=== PATIENT | male | born 1995 | race Caucasian/White ===

== ENCOUNTER 2020-11-13 22:19 | Emergency (ER) | payer OTHER ==
[~2020-11-13] VITALS: Ht 183 cm; Wt 74.0 kg
[2020-11-13 22:29] VITALS: BP 140/70
[2020-11-13] MEDS ORDERED: LIDOCAINE 1% INJ 20 ML 20 ML VIAL ONE (22:40)
[2020-11-13] MEDS ORDERED: LIDOCAINE 1% INJ 20 ML 20 ML VIAL INJ ONE (22:45)
--- NOTE | 2020-11-13 23:13 | ED Upper Extremity ---
General Chief Complaint: Upper Extremity Stated Complaint: MEDICAL CLEARANCE Nursing Triage Note: Pt arrives to ED in police custody. Pt was intoxicated et punched a window. Significant laceration to right arm. Pt is awake, alert, talkative. Airway intact. Respirations even et unlabored. Skin warm, dry, appropriate for ethnicity. Source: patient Exam Limitations: no limitations History of Present Illness Date Seen by Provider: Nov 13, 2020 Time Seen by Provider: 22:25 Initial Comments Patient is a 25-year-old right-handed male who presents in police custody with lacerations to right hand and forearm after punching a glass window. No other injuries or complaints. Tetanus up-to-date. Patient with 4 lacerations of various lengths involving right flexor forearm and right wrist and right extensor hand over fifth MCP and fourth MCP joints. There is a laceration through the extensor finger of his fifth digit. He denies foreign body sensation. Patient has been drinking alcohol earlier this evening. No other injuries or complaints Onset: just prior to arrival Pain/Injury Location: right forearm, right wrist, right 4th finger, right 5th finger Method of Injury: incised Modifying Factors: Improves With Pain Medication Allergies and Home Medications Allergies Coded Allergies: No Known Drug Allergies (Unverified , 11/13/20) Patient Home Medication List Home Medication List Reviewed: Yes Review of Systems Constitutional: see HPI Past [id number] Hx Patient Social History Tobacco Use?: Yes Tobacco type used: Cigarettes Smoking Status: Current Everyday Smoker Smokeless Tobacco Frequency: Never a User Use of E-Cig and/or Vaping dev: No Use of E-Cig and/or Vaping Ramirez: Never a User Substance use?: Yes Substance type: Marijuana Substance frequency: Couple times a week Alcohol Use?: Yes Alcohol type: Beer Alcohol Frequency: Daily Pt feels they are or have been: No Physical Exam Vital Signs Vital Signs - First Documented 11/13/20 22:29 Temp 36.9 Pulse 101 Resp 18 B/P (MAP) 140/70 (93) Pulse Ox 99 O2 Delivery Room Air Capillary Refill : Less Than 3 Seconds Height, Weight, BMI Height: '" Weight: lbs. oz. kg; 22.00 BMI Method: General Appearance: no apparent distress HEENT: PERRL/EOMI, normal ENT inspection Neck: full range of motion Elbow/Forearm: Right (4 lacerations of various lengths involving right flexor forearm and right wrist and right extensor hand over fifth MCP and fourth MCP joints bleeding is controlled. No obvious foreign bodies), soft tissue tenderness Procedures/Interventions Wound Location: Upper Extremities Other Wound Location R full-thickness laceration to right extensor forearm, right wrist, right extensor fourth and fifth MCP joints,. Total length 8 cm Wound's Depth, Shape: into muscle, tendon Wound Explored: clean Anesthesia: 1% Lidocaine Volume Anesthetic (ccs): 20 Wound Debrided: minimal Staple Repair: Stapler 35W (12) Suture: Ethlion (14) Number of Sutures: 14 Layer Closure?: 1 Sterile Dressing Applied?: Yes Progress Patient tolerated procedure well Progress/Results/Core Measures Results/Orders My Orders Orders - SHENG RODRIGUEZ DO Forearm 2 View Right (11/13/20 22:28) Lidocaine 1% Inj 20 Ml (Xylocaine 1% Inj (11/13/20 22:45) Lidocaine 1% Inj 20 Ml (Xylocaine 1% Inj (11/13/20 22:40) Medications Given in ED Current Medications Medications Dose Ordered Sig/Martina Route Start Time Stop Time Status Last Admin Dose Admin Lidocaine HCl 20 ml ONCE ONCE INJ 11/13/20 22:45 11/13/20 22:46 DC 11/13/20 22:48 20 ML Vital Signs/I&O 11/13/20 22:29 Temp 36.9 Pulse 101 Resp 18 B/P (MAP) 140/70 (93) Pulse Ox 99 O2 Delivery Room Air Blood Pressure Mean: 93 Departure Communication (Admissions) Right forearm: Possible punctate foreign body right forearm, no fractures Wounds cleansed, closed and bandaged. Patient instructed to follow-up with plastic surgeon for repair of right small finger extensor tendon. Will place on antibiotics and discharged to half-way. Typical wound care and instructions given. Return precautions reviewed. Patient verbalizes understanding agreement discharge instructions prior to departure Impression Primary Impression: Laceration of right forearm Additional Impressions: Laceration of right wrist Laceration of tendon of right hand Laceration of finger, right, with tendon Disposition: 01 HOME, SELF-CARE Condition: Stable Departure-Patient Inst. Decision time for Depature: 23:15 Referrals: NO,LOCAL PHYSICIAN (PCP/Family) Primary Care Physician Patient Instructions: Wound Care Add. Discharge Instructions: Please keep wounds clean covered and dry. Follow-up with hand surgeon in the next 5 to 7 days for reevaluation of right small finger wound and repair of tendon. Return to the ED or medical provider in 10 days for remaining removal of sutures and danya. Take ibuprofen for pain and antibiotics as directed. Return sooner if signs of infection. All discharge instructions reviewed with patient and/or family. Voiced understanding. Scripts Cephalexin (Cephalexin) 500 Mg Tablet 500 MG PO TID, #21 TAB Prov: SHENG RODRIGUEZ DO 11/13/20 SHENG RODRIGUEZ DO Nov 13, 2020 23:12
[2020-11-13] MEDS ORDERED: CEPH500T PO (23:16)
[2020-11-13] MEDS ORDERED: IBUPROFEN 600 MG (MOTRIN) TAB PO ONE (23:30)
[2020-11-13] MEDS ORDERED: CEPHALEXIN 250 MG (KEFLEX) CAP PO ONE (23:30)
--- NOTE | 2020-11-14 08:14 | Diagnostic Imaging Report ---
INDICATION: Lacerations FINDINGS: There is soft tissue injuries to the forearm most notable in the lateral radiograph along its dorsal aspect. No retained opaque foreign body found and no fracture demonstrated. IMPRESSION: Soft tissue injuries but no retained opaque foreign body or fracture apparent. Dictated by: Dictated on workstation # [id number]
== END 2020-11-13 23:25 | disposition home or self-care (01) ==
LOC: EDUNIT# 22:19 → ER FS 22:23
DX: S51.811A Laceration without foreign body of right forearm, initial encounter (principal); S61.511A Laceration without foreign body of right wrist, initial encounter; S61.411A Laceration without foreign body of right hand, initial encounter; S61.216A Laceration without foreign body of right little finger without damage to nail, initial encounter; S61.214A Laceration without foreign body of right ring finger without damage to nail, initial encounter; F17.210 Nicotine dependence, cigarettes, uncomplicated; W25.XXXA Contact with sharp glass, initial encounter
CPT/HCPCS: 73090